=== PATIENT | male | born 1955 | race Caucasian/White ===

== ENCOUNTER 2021-08-26 10:55 | Emergency (ER) | payer BC ==
[~2021-08-26] VITALS: Ht 195.6 cm; Wt 106.6 kg
[2021-08-26 11:02] VITALS: BP 150/89
--- NOTE | 2021-08-26 11:16 | NUR ---
BIB SELF C/O TOOTH PAIN X 2 WEEKS , JAW SWELLING X 2 DAYS. TOOK AMIXICILLIN/CLAV 4 DAYS. took ibuprofen 1000 mg at 8 am today. BLOOD SUGAR 186 AT THIS TIME. PMH: HTN, DM
--- NOTE | 2021-08-26 11:18 | NUR ---
Patient being evaluated by CARRILLO PIERSON at TRIAGED ROOM.
--- NOTE | 2021-08-26 11:18 | NUR ---
Acosta silveira in ED - 08/26/[address] [facility] Patient being evaluated by CARRILLO PIERSON at bedside.
[2021-08-26 11:43] VITALS: BP 150/89
--- NOTE | 2021-08-26 11:43 | NUR ---
Patient discharged with v/s stable. Written and verbal after care instructions given and explained. Patient verbalized understanding. Ambulatory with steady gait. All questions addressed prior to discharge. Advised to follow up with PMD.
== END 2021-08-26 11:43 | disposition home or self-care (01) ==
LOC: MED 10:55
DX: K08.89 Other specified disorders of teeth and supporting structures (principal); E11.9 Type 2 diabetes mellitus without complications; I10 Essential (primary) hypertension; F17.200 Nicotine dependence, unspecified, uncomplicated; Z88.8 Allergy status to other drugs, medicaments and biological substances
CPT/HCPCS: 99281; 99282